=== PATIENT | male | born 1950 | race Caucasian/White ===

== ENCOUNTER 2017-05-15 10:02 | Emergency (ER) | payer MEDICARE, BC ==
[2017-05-15 10:14] VITALS: BP 120/67
--- NOTE | 2017-05-15 10:23 | UC ---
Skin Complaint HPI - HPI Summary HPI Summary: 67 YEAR OLD MALE PRESENTS WITH COMPLAINS OF RASH ON LOWER EXTREMITIES. - History of Current Complaint Chief Complaint: UCSkin Time Seen by Provider: 05/15/17 10:16 Stated Complaint: RASH Onset/Duration: Gradual Onset Timing: Constant - Allergy/Home Medications Allergies/Adverse Reactions: Allergies Allergy/AdvReac Type Severity Reaction Status Date / Time No Known Allergies Allergy Verified 05/15/17 10:13 Review of Systems Constitutional: Negative Skin: Rash Eyes: Negative ENT: Negative Respiratory: Negative Cardiovascular: Negative Gastrointestinal: Negative Genitourinary: Negative Motor: Negative Neurovascular: Negative Musculoskeletal: Negative Neurological: Negative Psychological: Negative All Other Systems Reviewed And Are Negative: Yes PMH/Surg Hx/FS Hx/Imm Hx - Surgical History Surgical History: None - Social History Alcohol Use: None Substance Use Type: None Smoking Status (MU): Never Smoked Tobacco Physical Exam Triage Information Reviewed: Yes Vital Signs: Initial Vital Signs Temp 36.1 C 05/15/17 10:11 Pulse 56 05/15/17 10:11 Resp 18 05/15/17 10:11 BP 120/67 05/15/17 10:11 Pulse Ox 97 05/15/17 10:11 Eye Exam: Normal ENT Exam: Normal Dental Exam: Normal Neck exam: Normal Neck: Positive: 1 Respiratory Exam: Normal Cardiovascular Exam: Normal Abdominal Exam: Normal Musculoskeletal Exam: Normal Neurological Exam: Normal Psychological Exam: Normal Skin: Positive: rashes - ECZEMA EXACERBATION Course/Dx - Diagnoses Provider Diagnoses: ECZEMA Discharge - Discharge Plan Condition: Stable Disposition: HOME Prescriptions: Acyclovir* [Zovirax TAB*] 800 mg PO 5ID #70 tab Betamethasone Leidy 0.1% CRM(NF) [Valisone 0.1% CM(NF)] 1 applic TOPICAL DAILY # 90 gm Methylprednisolone [Medrol Dosepak 4 MG*] 4 mg PO .SEE ZOHAIB INSTRUCTION #21 tab Patient Education Materials: Acute Rash (ED) Referrals: Júnior Machado MD [Primary Care Provider] - If Needed
== END 2017-05-15 10:30 | disposition home or self-care (01) ==
LOC: UCEAST 10:02
DX: L30.9 Dermatitis, unspecified (principal)
CPT/HCPCS: 99212; G0463

== ENCOUNTER 2017-11-12 07:05 | Emergency (ER) | payer MEDICARE, BC ==
--- NOTE | 2017-11-12 08:33 | RAD ---
INDICATION: Right shoulder pain COMPARISON: None. TECHNIQUE: 4 views of the right shoulder were obtained. FINDINGS: The adequately corticated bones are in normal alignment. Joint spaces appear maintained. No fracture, dislocation or focal bony abnormality is seen. IMPRESSION: Normal radiograph of the right shoulder. If the patient's symptoms persist, follow-up imaging is recommended.
[2017-11-12 09:13] VITALS: BP 135/66
--- NOTE | 2017-11-12 18:11 | ED ---
Estuardo Martins Natalie, scribed for Paul Cassidy MD on 11/12/17 at 0755 . Upper Extremity Pain - HPI Summary HPI Summary: The pt is a 67 y/o M presenting to the ED c/o Tuesday with right anterior shoulder pain starting 11/08/17. He had a cold on 11/07/17, and woke up the next morning with discomfort in his right shoulder. He states that he gets very uncomfortable sleeping at night. The pain is described as feeling like a bruise. The pain is rated 3/10 in severity. The pain is aggravated by movement. The patient has treated the pain with Ibuprofen [employer] to some relief. Pt additionally c/o decreased ROM in right shoulder. He has hx of dislocation 5 times in last 45 years, but no similar episodes in last 25 years. - History of Current Complaint Chief Complaint: EDExtremityUpper Stated Complaint: RIGHT SHOULDER INJURY Time Seen by Provider: 11/12/17 07:20 Hx Obtained From: Patient Onset/Duration: Started Days Ago - started 11/08/17, Still Present Timing: Lasting Days Severity Initially: Moderate Severity Currently: Moderate Pain Location: Shoulder - right anterior Aggravating Factor(s): Movement Alleviating Factor(s): Other - Ibuprofen to some relief Associated Signs & Symptoms: Positive: Other - decreased ROM - Allergies/Home Medications Allergies/Adverse Reactions: Allergies Allergy/AdvReac Type Severity Reaction Status Date / Time No Known Allergies Allergy Verified 05/15/17 10:13 PMH/Surg Hx/FS Hx/Imm Hx Previously Healthy: No Endocrine/Hematology History: Denies: Hx Diabetes, Hx Thyroid Disease Cardiovascular History: Reports: Hx Hypertension Respiratory History: Denies: Hx Asthma, Hx Chronic Obstructive Pulmonary Disease (COPD) GI History: Denies: Hx Ulcer Infectious Disease History: No Infectious Disease History: Denies: Hx Clostridium Difficile, Hx Hepatitis, Hx Human Immunodeficiency Virus (HIV), Hx of Known/Suspected MRSA, Hx Shingles, Hx Tuberculosis, Hx Known/ Suspected VRE, Hx Known/Suspected VRSA, History Other Infectious Disease, Traveled Outside the [place] in Last 30 Days - Family History Known Family History: Positive: Cardiac Disease, Hypertension, Diabetes - Social History Alcohol Use: None Substance Use Type: Reports: None Smoking Status (MU): Never Smoked Tobacco Review of Systems Negative: Fever Positive: Decreased ROM, Other - right anterior shoulder pain All Other Systems Reviewed And Are Negative: Yes Physical Exam - Summary Physical Exam Summary: Appearance: The patient is well-nourished in no acute distress and in no acute pain. Skin: The skin is warm and dry and skin color reflects adequate perfusion. HEENT: The head is normocephalic and atraumatic. The pupils are equal and reactive. The conjunctivae are clear and without drainage. Nares are patent and without drainage. Mouth reveals moist mucous membranes and the throat is without erythema and exudate. The external ears are intact. The ear canals are patent and without drainage. The tympanic membranes are intact. Neck: The neck is supple with full range of motion and non-tender. There are no carotid bruits. There is no neck vein distension. Respiratory: Chest is non-tender. Lungs are clear to auscultation and breath sounds are symmetrical and equal. Cardiovascular: Heart is regular rate and rhythm. There is no murmur or rub auscultated. There is no peripheral edema and pulses are symmetrical and equal. Abdomen: The abdomen is soft and non-tender. There are normal bowel sounds heard in all four quadrants and there is no organomegaly palpated. Musculoskeletal: There is no back tenderness noted. There is tenderness at insertion of supraspinatus. There is good capillary refill. There is no peripheral edema or calf tenderness elicited. Neurological: Patient is alert and oriented to person, place and time. The patient has symmetrical motor strength in all four extremities. Cranial nerves are grossly intact. Deep tendon reflexes are symmetrical and equal in all four extremities. Psychiatric: The patient has an appropriate affect and does not exhibit any anxiety or depression. Triage Information Reviewed: Yes Vital Signs On Initial Exam: Initial Vitals Temp Pulse Resp BP Pulse Ox 97.7 F 49 18 146/69 99 11/12/17 07:12 11/12/17 07:12 11/12/17 07:12 11/12/17 07:12 11/12/17 07:12 Vital Signs Reviewed: Yes Diagnostics - Vital Signs Vital Signs Temp Pulse Resp BP Pulse Ox 11/12/17 07:12 97.7 F 49 18 146/69 99 - Laboratory Lab Statement: Any lab studies that have been ordered have been reviewed, and results considered in the medical decision making process. - Radiology Right Shoulder XR Xray Interpretation: No Acute Changes - Normal radiograph of the right shoulder. ED physician has reviewed this report. Radiology Interpretation Completed By: Radiologist Course/Dx - Course Course Of Treatment: Mr. Melchor has had a week of gradually increasing right shoulder pain without trauma. He is tender at the pectoralis major insertion and to any ROM. X-ray is negative and we placed him in a sling and recommended NSAID's and Ortho F/U within a week - not to use the sling longer without F/U. - Diagnoses Provider Diagnoses: Bursitis Discharge - Discharge Plan Condition: Stable Disposition: HOME Patient Education Materials: Shoulder Bursitis (ED) Referrals: Júnior Machado MD [Primary Care Provider] - Eduardo Matthews MD [Medical Doctor] - 3 Days Additional Instructions: Follow up with orthopedics, Dr. Matthews , in 3 days. Take Ibuprofen for pain as needed. Return to the Emergency Department if any new or worsening symptoms occur. The documentation as recorded by the Estuardo lucia Natalie accurately reflects the service I personally performed and the decisions made by , Paul Cassidy MD.
== END 2017-11-12 09:20 | disposition home or self-care (01) ==
LOC: ED 07:05
DX: M71.9 Bursopathy, unspecified (principal); M25.511 Pain in right shoulder
CPT/HCPCS: 99282

== ENCOUNTER 2019-06-11 13:22 | Emergency (ER) | payer MEDICARE, BC ==
[2019-06-11 13:33] VITALS: BP 133/69
--- NOTE | 2019-06-11 13:55 | UC ---
Respiratory Complaint HPI - HPI Summary HPI Summary: 69 yo male presents with post nasal drip, runny nose, and intermittently productive cough for the last week. He does not smoke. Has not been taking anything OTC. Denies fever, chills, SOB, chest pain, rash. - History of Current Complaint Chief Complaint: UCRespiratory Stated Complaint: ST/COUGH/BILAT EYE ISSUE Time Seen by Provider: 06/11/19 13:55 Hx Obtained From: Patient Onset/Duration: Gradual Onset Severity Initially: Mild Severity Currently: Mild Pain Intensity: 2 - Allergies/Home Medications Allergies/Adverse Reactions: Allergies Allergy/AdvReac Type Severity Reaction Status Date / Time No Known Allergies Allergy Verified 06/11/19 13:34 PMH/Surg Hx/FS Hx/Imm Hx Endocrine History: Dyslipidemia Cardiovascular History: Hypertension - Surgical History Surgical History: None - Family History Known Family History: Positive: Cardiac Disease, Hypertension, Diabetes - Social History Lives: With Family Alcohol Use: None Substance Use Type: None Smoking Status (MU): Never Smoked Tobacco Review of Systems All Other Systems Reviewed And Are Negative: Yes Constitutional: Positive: Negative Skin: Positive: Negative Eyes: Positive: Negative ENT: Positive: Nasal Discharge Respiratory: Positive: Cough Cardiovascular: Positive: Negative Gastrointestinal: Positive: Negative Neurovascular: Positive: Negative Neurological: Positive: Negative Psychological: Positive: Negative Physical Exam - Summary Physical Exam Summary: GENERAL: NAD. WDWN. No pain distress. SKIN: No rashes, sores, lesions, or open wounds. HEENT: Head: AT/NC Eyes: Conjunctiva clear without inflammation or discharge. Ears: Hearing grossly normal. TMs intact, no bulging, erythema, or edema. Nose: Nasal mucosa mildly swollen and erythematous with yellow/ clear discharge. NTTP maxillary/frontal sinus. Positive post nasal drip Throat: Posterior oropharynx without exudates, erythema, or tonsillar enlargement. Uvula midline. NECK: Supple. Nontender. No lymphadenopathy. CHEST: Mild wheezing throughout. No r/r. No accessory muscle use. Breathing comfortably and in no distress. CV: RRR. Without m/r/g. Pulses intact. Cap refill <2seconds NEURO: Alert. PSYCH: Age appropriate behavior. Triage Information Reviewed: Yes Vital Signs: Initial Vital Signs Temp 98.7 F 06/11/19 13:31 Pulse 62 06/11/19 13:31 Resp 16 06/11/19 13:31 BP 133/69 06/11/19 13:31 Pulse Ox 100 06/11/19 13:31 Vital Signs Reviewed: Yes Respiratory Course/Dx - Course Course Of Treatment: Suspect bronchitis/allergies. - Differential Dx/Diagnosis Provider Diagnosis: Seasonal allergies, Bronchitis Discharge - Sign-Out/Discharge Documenting (check all that apply): Patient Departure All imaging exams completed and their final reports reviewed: No Studies - Discharge Plan Condition: Stable Disposition: HOME Prescriptions: Albuterol HFA INHALER* [Ventolin HFA Inhaler*] 1 puff INH Q6H PRN #1 mdi PRN Reason: Cough Azithromycin TAB* [Zithromax TAB (Z-ZOHAIB) 250 mg #6 tabs] 2 tab PO .TODAY, THEN 1 DAILY #1 zohaib Loratadine [Claritin] 10 mg PO DAILY #30 tablet Patient Education Materials: Acute Bronchitis (ED), Postnasal Drip (DC) Referrals: Júnior Machado MD [Primary Care Provider] - Additional Instructions: If you develop a fever, shortness of breath, chest pain, new or worsening symptoms - please call your PCP or go to the ED immediately. - Billing Disposition and Condition Condition: STABLE Disposition: Home - Attestation Statements Provider Attestation: Per institutional requirements, I have reviewed the chart, however, I was not consulted specifically or made aware of this patient by the midlevel provider. I did not personally evaluate, interact with , or disposition this patient.
== END 2019-06-11 14:12 | disposition home or self-care (01) ==
LOC: UCEAST 13:22
DX: J40 Bronchitis, not specified as acute or chronic (principal); J30.2 Other seasonal allergic rhinitis; E78.5 Hyperlipidemia, unspecified; I10 Essential (primary) hypertension
CPT/HCPCS: 99212; G0463